=== PATIENT | female | born 1980 | race Caucasian/White ===

== ENCOUNTER 2019-03-09 09:46 | Emergency (ER) | payer OTHER ==
[2019-03-09 09:57] VITALS: BP 122/77; PULSE 108; TEMP 98.4; BMI 47.3
--- NOTE | 2019-03-09 10:49 | PDOC ---
History of Present Illness - General Chief Complaint: Sore Throat Stated Complaint: SORE THROAT Time Seen by Provider: 03/09/19 10:19 - History of Present Illness Initial Comments: 03/09/19 10:45 CHIEF COMPLAINT: sore throat HISTORY OF PRESENT ILLNESS: 38 yo F presents to ED with sore throat x 2 days. Patient reports that her daughter was diagnosed and treated with strep a few days prior to her onset of symptoms so she is concerned that she has strep as well. Denies any change in voice or difficulty swallowing own saliva. Reports subjective fever, denies vomiting or diarrhea. No recent travel or sick contacts. PAST MEDICAL HISTORY: Denies past medical history FAMILY HISTORY: Denies SOCIAL HISTORY: Denies tobacco, alcohol, illicit drug use. SURGICAL HISTORY: Denies ALLERGIES: No known drug allergies REVIEW OF SYSTEMS General/Constitutional: Denies fever or chills. Denies weakness, weight change. HEENT: Sore throat x 2 days. Denies change in vision. Denies ear pain or discharge. Cardiovascular: Denies chest pain or shortness of breath. Respiratory: Denies cough, wheezing, or hemoptysis. Gastrointestinal: Denies nausea, vomiting, diarrhea or constipation. Denies rectal bleeding. Genitourinary: Denies dysuria, frequency, or change in urination. Musculoskeletal: Denies joint or muscle swelling or pain. Denies neck or back pain. Skin and breasts: Denies rash or easy bruising. Neurologic: Denies headache, vertigo, loss of consciousness, or loss of sensation. Psychiatric: Denies depression or anxiety. PHYSICAL EXAM General Appearance: Well-appearing, appropriately dressed. No apparent distress , no intoxication. HEENT: Exudate to L tonsil. Tonsils 1+ b/l. No peritonsillar abscess appreciated. EOMI, PERRLA, normal voice, TMs normal, pharynx normal. No conjunctival pallor. No photophobia, scleral icterus. Neck: Supple. Trachea midline. No tenderness, rigidity, carotid bruit, stridor , lymphadenopathy, or thyromegaly. Respiratory/Chest: Lungs CTAB. No shortness of breath, chest tenderness, respiratory distress, accessory muscle use. No crackles, rales, rhonchi, stridor , wheezing, dullness Cardiovascular: RRR. S1, S2. No JVD, murmur, bradycardia, tachycardia. Vascular Pulses: Dorsalis-Pedis (R): 2+, Dorsalis-Pedis (L): 2+ Gastrointestinal/Abdominal: Normal bowel sounds. Abdomen soft, non-distended. No tenderness or rebound tenderness. No organomegaly, pulsatile mass, guarding , hernia, hepatomegaly, splenomegaly. Lymphatic: No adenopathy, tenderness. Musculoskeletal/Extremities: Normal inspection. FROM of all extremities, normal capillary refill. Pelvis Stable. No CVA tenderness. No tenderness to extremities, pedal edema, swelling, erythema or deformity. Integumentary: Appropriate color, dry, warm. 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 Fully oriented, alert. Appropriate mood/affect. Motor strength 5/5. No appreciable EOM palsy, facial droop or sensory deficit. Past History - Past Medical History Allergies/Adverse Reactions: Allergies Allergy/AdvReac Type Severity Reaction Status Date / Time No Known Allergies Allergy Verified 03/09/19 09:57 Home Medications: Ambulatory Orders NK [No Known Home Medication] 03/09/19 - Psycho Social/Smoking Cessation Hx Smoking History: Never smoked Have you smoked in the past 12 months: No Information on smoking cessation initiated: No Hx Alcohol Use: No Drug/Substance Use Hx: No *Physical Exam - Vital Signs Last Vital Signs Temp Pulse Resp BP Pulse Ox 98.4 F 108 H 20 122/77 98 03/09/19 09:54 03/09/19 09:54 03/09/19 09:54 03/09/19 09:54 03/09/19 09:54 Medical Decision Making - Medical Decision Making 03/09/19 10:48 38 yo F presents to ED with sore throat x 2 days. -strep swab sent Strep positive, patient requests bicillin IM instead of po abc Advised patient follow up with PCP next week. Advised patient of signs and symptoms for return to ED. Patient verbalized understanding and agrees to plan. Discharge - Discharge Information Problems reviewed: Yes Clinical Impression/Diagnosis: Strep sore throat Condition: Stable Disposition: HOME - Admission No - Follow up/Referral - Patient Discharge Instructions Patient Printed Discharge Instructions: DI for Strep Throat - Post Discharge Activity Work/Back to School Note: Back to Work
[2019-03-09] MEDS ORDERED: PENICILLIN G BENZATHINE 1,200,000 UNIT/2 ML PFS IM ONE ×2 (11:22→11:28)
== END 2019-03-09 11:37 | disposition home or self-care (01) ==
LOC: JERFT 09:46
DX: J02.0 Streptococcal pharyngitis (principal); B95.0 Streptococcus, group A, as the cause of diseases classified elsewhere
CPT/HCPCS: 87880; 99281-25

== ENCOUNTER 2019-06-19 11:17 | Emergency (ER) | payer OTHER ==
[2019-06-19 11:29] VITALS: BP 143/61; PULSE 97; TEMP 98.2; BMI 48.4
[2019-06-19] MEDS ORDERED: DIPHTH,PERTUSS(ACELL),TET 0.5 ML DISP.SYRIN IM ONE ×2 (12:11→12:13)
--- NOTE | 2019-06-19 12:17 | PDOC ---
History of Present Illness - General Chief Complaint: Injury Stated Complaint: FOOT INJURY Time Seen by Provider: 06/19/19 11:39 History Source: Patient Exam Limitations: No Limitations - History of Present Illness Is this a multiple visit Asthma Patient?: No Past History - Travel Traveled outside of the country in the last 30 days: No - Past Medical History Allergies/Adverse Reactions: Allergies Allergy/AdvReac Type Severity Reaction Status Date / Time No Known Allergies Allergy Verified 06/19/19 11:26 Home Medications: Ambulatory Orders Ciprofloxacin HCl [Cipro] 500 mg PO BID 7 Days #14 tablet 06/19/19 COPD: No CHF: No DVT: No Dementia: No - Immunization History Immunization Up to Date: Yes - Psycho Social/Smoking Cessation Hx Smoking History: Never smoked Have you smoked in the past 12 months: No Information on smoking cessation initiated: No Hx Alcohol Use: No Drug/Substance Use Hx: No Review of Systems - Review of Systems Constitutional: No: Chills, Fever Musculoskeletal: Yes: Other (left foot discomfort) *Physical Exam - Vital Signs Last Vital Signs Temp Pulse Resp BP Pulse Ox 98.2 F 97 H 16 143/61 97 06/19/19 11:27 06/19/19 11:27 06/19/19 11:27 06/19/19 11:27 06/19/19 11:27 - Physical Exam General Appearance: Yes: Nourished Extremity: positive: Normal Capillary Refill, Normal Inspection, Normal Range of Motion, Other (no visible puncture wound or laceration noted in left foot, distal pulse intact, no erytheam or warmth) 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 Her last tetanus was last was greater than 10 years ago. Patient denies any history of diabetes or any other chronic condition. Patient reports that the nail glazed her foot and no evidence of puncture wound. There is no bleeding is no laceration. There is no warmth swelling. 06/19/19 13:38 Rx gus cipro tetanus updated s/s of infection discussed with patient Discharge - Discharge Information Problems reviewed: Yes Clinical Impression/Diagnosis: Foot pain, left Condition: Stable Disposition: HOME - Admission No - Additional Discharge Information Prescriptions: Ciprofloxacin HCl [Cipro] 500 mg PO BID 7 Days #14 tablet Prescription Drug Monitoring Program (I-STOP) results: I-STOP not reviewed - Follow up/Referral Referrals: Juan Lim [Primary Care Provider] - - Patient Discharge Instructions Additional Instructions: Your exam in the emergency room was normal today. There is no evidence of any puncture wound or laceration. Your tetanus was updated today. And antibiotics were sent to your pharmacy given questionable nail contact. Please watch out for any signs of infection like redness, worsening pain, fever , chills or discharge. If that occurs please return to the emergency room immediately for further evaluation. - Post Discharge Activity
== END 2019-06-19 12:21 | disposition home or self-care (01) ==
LOC: JERFT 11:17
PROC: 3E0234Z Introduction of Serum, Toxoid and Vaccine into Muscle, Percutaneous Approach (ICD-10-PCS; principal; 2019-06-19)
DX: M79.672 Pain in left foot (principal); W26.8XXA Contact with other sharp object(s), not elsewhere classified, initial encounter; Y93.89 Activity, other specified; Y92.89 Other specified places as the place of occurrence of the external cause; Y99.8 Other external cause status; W22.8XXA Striking against or struck by other objects, initial encounter
CPT/HCPCS: 73630-TC-LT; 90471; 90715; 99283-25

== ENCOUNTER 2019-06-28 16:47 | Emergency (ER) | payer OTHER ==
[2019-06-28 17:01] VITALS: BP 144/91; PULSE 99; TEMP 98; BMI 49.0
--- NOTE | 2019-06-28 17:01 | PDOC ---
Rapid Medical Evaluation Time Seen by Provider: 06/28/19 16:58 Medical Evaluation: Allergies Allergy/AdvReac Type Severity Reaction Status Date / Time No Known Allergies Allergy Verified 06/19/19 11:26 06/28/19 16:58 I have performed a brief in-person evaluation of this patient. The patient presents with a chief complaint of: concern for foreign body to throat Pertinent physical exam findings: no foreign body visualized, no resp compromise I have ordered the following: soft tissue neck XR The patient will proceed to the ED for further evaluation Discharge Disposition - Diagnosis Foreign body (FB) in soft tissue - Referrals - Patient Instructions - Post Discharge Activity
--- NOTE | 2019-06-28 17:22 | PDOC ---
History of Present Illness - General Chief Complaint: Foreign Body (FB) Stated Complaint: TOOTHACHE Time Seen by Provider: 06/28/19 16:58 History Source: Patient - History of Present Illness Timing/Duration: other (last night) Severity: moderate Associated Symptoms: denies: fever/chills Past History - Past Medical History Allergies/Adverse Reactions: Allergies Allergy/AdvReac Type Severity Reaction Status Date / Time No Known Allergies Allergy Verified 06/19/19 11:26 Home Medications: Ambulatory Orders Ciprofloxacin HCl [Cipro] 500 mg PO BID 7 Days #14 tablet 06/19/19 COPD: No CHF: No DVT: No Dementia: No - Immunization History Immunization Up to Date: Yes - Psycho Social/Smoking Cessation Hx Smoking History: Never smoked Have you smoked in the past 12 months: No Hx Alcohol Use: No Drug/Substance Use Hx: No Review of Systems - Review of Systems Constitutional: No: Chills, Fever HEENTM: Yes: Mouth Pain. No: Mouth Swelling *Physical Exam - Vital Signs Last Vital Signs Temp Pulse Resp BP Pulse Ox 98 F 99 H 20 144/91 98 06/28/19 16:58 06/28/19 16:58 06/28/19 16:58 06/28/19 16:58 06/28/19 16:58 - Physical Exam General Appearance: Yes: Appropriately Dressed, Mild Distress, Other HEENT: positive: Normal ENT Inspection, TMs Normal, Pharynx Normal, Other ( minimal ttp to site of R retromolar pad but no swelling or fb seen or palpated, dentition unremarkable). negative: Scleral Icterus (R), Scleral Icterus (L) Neck: positive: Supple. negative: Lymphadenopathy (R), Lymphadenopathy (L) Respiratory/Chest: negative: Respiratory Distress Integumentary: positive: Dry, Warm Neurologic: positive: Fully Oriented, Alert, Normal Mood/Affect Medical Decision Making - Medical Decision Making 06/28/19 17:18 38-year-old female, no significant history, here with foreign sensation to mouth. Patient states while brushing her teeth last night felt something "sticking" in R lower retromolar pad but that when she looked inside her mouth did not see any foreign body. Continues to have discomfort to site. Well- appearing and stable with normal oral exam with no gross body visualized or palpated. Will dc to follow-up in urgent care dental clinic today for further eval as discussed with patient Discharge - Discharge Information Problems reviewed: Yes Clinical Impression/Diagnosis: Mouth disorder Condition: Good Disposition: HOME - Follow up/Referral Referrals: Juan Lim [Primary Care Provider] - - Patient Discharge Instructions Additional Instructions: Cause of foreign body sensation is unclear as your exam was normal with no foreign body seen or palpated. As symptoms persist, you will need further evaluation by a dentist. See information below: Urgent Care Dental Address: [address] [place] [id number] Closes 9PM - Post Discharge Activity
== END 2019-06-28 17:19 | disposition home or self-care (01) ==
LOC: JERFT 16:47
DX: K08.89 Other specified disorders of teeth and supporting structures (principal)
CPT/HCPCS: 99281-25

== ENCOUNTER 2019-12-27 23:12 | Emergency (ER) | payer OTHER ==
[2019-12-27 23:17] VITALS: BP 132/86; PULSE 113; TEMP 98.3; BMI 48.7
--- NOTE | 2019-12-27 23:36 | PDOC ---
*Physical Exam - Vital Signs Last Vital Signs Temp Pulse Resp BP Pulse Ox 98.3 F 113 H 19 132/86 98 12/27/19 23:13 12/27/19 23:13 12/27/19 23:13 12/27/19 23:13 12/27/19 23:13 Medical Decision Making - Medical Decision Making 12/27/19 23:35 Patient seen by the advanced practice provider under my supervision. Ancillary testing reviewed as necessary. I agree with plan as outlined by the advanced practice provider. Discharge - Discharge Information Problems reviewed: Yes Clinical Impression/Diagnosis: Sore throat (viral) Condition: Stable Disposition: HOME - Follow up/Referral Referrals: Juan Lim [Primary Care Provider] - - Patient Discharge Instructions Patient Printed Discharge Instructions: DI for Viral Pharyngitis Additional Instructions: RETURN TO THE ER IF YOUR SYMPTOMS WORSEN - Post Discharge Activity Work/Back to School Note: Back to Work
--- NOTE | 2019-12-27 23:37 | PDOC ---
History of Present Illness - General Chief Complaint: Sore Throat Stated Complaint: SORE THROAT Time Seen by Provider: 12/27/19 23:25 History Source: Patient Exam Limitations: No Limitations - History of Present Illness Initial Comments: 12/27/19 23:39 39-year-old female no significant past medical history presenting to the ED with sore throat for 3 days. Patient states that her mother had similar symptoms which have now resolved. Patient is still able to tolerate p.o. fluids and food without difficulty. Patient was COVID positive back in July. Pt otherwise denies: fevers, chills, syncope, lightheadedness, dizziness, headaches, neck pain, chest pain, shortness of breath, palpitations, back pain, abdominal pain, nausea, vomiting, diarrhea, constipation. Past History - Medical History Allergies/Adverse Reactions: Allergies Allergy/AdvReac Type Severity Reaction Status Date / Time No Known Allergies Allergy Verified 06/19/19 11:26 Home Medications: Ambulatory Orders Ciprofloxacin HCl [Cipro] 500 mg PO BID 7 Days #14 tablet 06/19/19 Loperamide HCl [Loperamide] 2 mg PO PRN PRN #14 capsule 07/30/19 COPD: No CHF: No DVT: No Dementia: No - Surgical History GI Surgery: Yes (Hernia Repair) - Reproductive History Is Patient Now?: No - Immunization History Immunization Up to Date: Yes - Psycho-Social/Smoking History Smoking History: Never smoked Have you smoked in the past 12 months: No - Substance Abuse Hx (Audit-C & DAST Scrn) How often the patient has a drink containing alcohol: Never Score: In Men: 4 or > Positive; In Women: 3 or > Positive: 0 Screen Result (Pos requires Nsg. Audit-10AR): Negative In the last yr the pt used illegal drug/Rx for NonMed reason: No Score: Yes response is considered Positive: 0 Screen Result (Positive result requires Nsg. DAST-10): Negative *Physical Exam - Vital Signs Last Vital Signs Temp Pulse Resp BP Pulse Ox 98.3 F 113 H 19 132/86 98 12/27/19 23:13 12/27/19 23:13 12/27/19 23:13 12/27/19 23:13 12/27/19 23:13 - Physical Exam 12/27/19 23:40 Gen: AAOx 3, no acute distress, comfortable, no signs of respiratory distress HENT: atraumatic, normocephalic with no laceration or contusion. Nasal mucosa without erythema. Oropharynx without erythema or exudates. Mucous membranes moist. EYES: PERRL, EOM intact, conjunctiva pink NECK: supple; trachea midline; no JVD, no lymphadenopathy, or thyromegaly CV: RRR no murmurs, gallops, or rubs. CHEST: CTA b/l no wheezing, rales or rhonchi ABD: +BS/ND. no TTP; soft, no rebound, no guarding EXTREMITY: no cyanosis or erythema. 2+ dorsalis pedis, posterior tibial, and radial pulse. No pedal edema; no calf swelling or tenderness SKIN: no rash, warm and dry, no diaphoresis HEME: no purpura or ecchymosis NEURO: normal speech, CN II-XII intact, sensation intact, normal gait, no cerebellar deficits MS: 5/5 strength in all extremities, FROM intact in all extremities. Medical Decision Making - Medical Decision Making 12/27/19 23:40 39-year-old female with sore throat Vital signs significant for mild tachycardia 113 Benign physical exam Most likely viral pharyngitis Tachycardia has now resolved in the ED patient's heart rate in the mid 90s Pt appears well and is safe and stable for discharge with strict return precautions including signs and symptoms requring immediate return to the ED Supportive care instructions explained and given to pt. Reasons to return emergently to ER explained and given. Importance of follow up with PMD and other specialists as indicated stressed to pt. Pt verbalized understanding of instructions. Pt to follow up with PMD in 2 days. Discharge - Discharge Information Problems reviewed: Yes Clinical Impression/Diagnosis: Sore throat (viral) Condition: Stable Disposition: HOME - Follow up/Referral Referrals: Juan Lim [Primary Care Provider] - - Patient Discharge Instructions Patient Printed Discharge Instructions: DI for Viral Pharyngitis Additional Instructions: RETURN TO THE ER IF YOUR SYMPTOMS WORSEN - Post Discharge Activity Work/Back to School Note: Back to Work
== END 2019-12-28 00:10 | disposition home or self-care (01) ==
LOC: JER 23:12
DX: R07.0 Pain in throat (principal)
CPT/HCPCS: 99283-25

== ENCOUNTER 2020-02-20 08:44 | Emergency (ER) | payer OTHER ==
[2020-02-20 08:52] VITALS: BP 131/83; PULSE 82; TEMP 97.9; BMI 50.2
--- OUTSIDE RECORDS SUMMARY | 2020-02-20 09:02 | XMS ---
:1980 Demographics Address [address] [place] [address] Mobile Phone Preferred Language en Marital Status Not or Congregational Affiliation [place] Race [facility] Ethnic Group Not or Author Organization [facility] Support Name Relationship Address Phone [employer] Unavailable [address] [place] [address] JUSTINA MEDRANO MOTHER [address] [place] [address] JUSTINA MEDRANO Mother [address] [place] [address] Care Team Providers Name Role Phone OYEKOLA LAST GREASER, MOBOLAJI Unavailable OYEKOLA LAST GREASER, MOBOLAJI Unavailable OYEKOLA LAST GREASER, MOBOLAJI Unavailable OYEKOLA LAST GREASER, MOBOLAJI Unavailable AdamJonelle Shawna Unavailable AGYEPONG LAST GREASER Unavailable AGYEPONG LAST GREASER Unavailable MONY LAST GREASER Unavailable MONY LAST GREASER Unavailable MONY LAST GREASER Unavailable LOU DDS Unavailable Re-disclosure Warning The records that you are about to access may contain information from federally- assisted alcohol or drug abuse programs. If such information is present, then the following federally mandated warning applies: This information has been disclosed to you from records protected by federal confidentiality rules (42 CFR part 2). The federal rules prohibit you from making any further disclosure of this information unless further disclosure is expressly permitted by the written consent of the person to whom it pertains or as otherwise permitted by 42 CFR part 2. A general authorization for the release of medical or other information is NOT sufficient for this purpose. The Federal rules restrict any use of the information to criminally investigate or prosecute any alcohol or drug abuse patient.The records that you are about to access may contain highly sensitive health information, the redisclosure of which is protected by Article 27-F of the [facility] Public Health law. If you continue you may haveaccess to information: Regarding HIV / AIDS; Provided by facilities licensed or operated by the [facility] Office of Mental Health; or Provided by the [facility] Office for People With Developmental Disabilities. If such information is present, then the following [facility] mandated warning applies: This information has been disclosed to you from confidential records which are protected by state law. State law prohibits you from making any further disclosure of this information without the specific written consent of the person to whom it pertains, or as otherwise permitted by law. Any unauthorized further disclosure in violation of state law may result in a fine or longterm sentence or both. A general authorization for the release of medical or other information is NOT sufficient authorization for further disclosure. Allergies and Adverse Reactions Type Description Substance Reaction Status Data Source(s ) Allergy to No Known Allergies No known [facility] ([facility] substance allergies [facility] ) Allergy to No Known Allergies No known [facility] ([facility] substance allergies [facility] ) Allergy to No Known Allergies No known [facility] ([facility] substance allergies [facility] ) Allergy to No Known Allergies No known [facility] [facility] ([facility] substance allergies [facility] ) Allergy to No Known Allergies No known [facility] [facility] ([facility] substance allergies [facility] ) Allergy to No Known Allergies No known [facility] ([facility] substance allergies [facility] ) Encounters Encounter Providers Location Date Indications Data Source(s) Outpatient< Attender: Simon 12/03/ ThrombocytosisPrediabete sObesity TOMMY td [facility] 2020 Morbid ([place] ID="[facility] 02:30: Neighborhood erTypeDescr LAST GREASER Center 00 PM Health iptionID0"> EDT - Center) OFFICE 12/03/ VISIT</td>< 2019 td>ALVARO 04:40: [facility] 37 PM LAST GREASER</td><td EDT >[facility]</td> <td> 020</td><td ><content ID="encount erDiagnosis ID0-0">Pred iabetes</co ntent>, <content ID="encount erDiagnosis ID0-1">Thro mbocytosis< /content>, <content ID="encount erDiagnosis ID0-2">Obes ity Morbid</con tent></td> Thrombocytosis Prediabetes Obesity Morbid Outpatient<td Attender: Simon 11/28/2019 [place] ID="encounterTypeDescriptionID1">*OUTREACH*</td><td>[facility] 12:31:00 PM ([facility] LAST GREASER</td><td>[facility] E DT - Neighborhood Center</td><td>11/28/2019</td><td></td> [facility] Center 020 Health 11:59:00 PM Center) EDT Outpatient<td ID="encounterTypeDescriptionID2">COMPLETE Attender : Simon 11/22/2019 P [place] PHYSICAL EXAM</td><td>[facility]</td><td>[facility] 10:00:00 AM r ([facility] EDT - e [facility]</td><td>11/22/2019</td><td><content LAST GREASER Center 11/07 v Health ID="encounterDiagnosisID2-0">Routine Pre-employment 12:20:45 PM e Center) Screening Examination</content>, <content EDT n ID="encounterDiagnosisID2-1">Obesity Morbid</content>, t <content ID="encounterDiagnosisID2-2">Questionnaires Phq-9 i Quick Depression Assessment Panel</content>, <content v ID="encounterDiagnosisID2-3">Preventive Med Standardized e Depression Screening: Positive For Symptoms</content></td> M e d S t a n d a r d i z e d D e p r e s s i o n S c r e e n i n g : P o s i t i v e F o r S y m p t o m s Q u e s t i o n n a i r e s P h q - 9 Q u i c k D e p r e s s i o n A s s e s s m e n t P a n e l R o u t i n e P r e - e m p l o y m e n t S c r e e n i n g E x a m i n a t i o n P r e v e n t i v e M e d S t a n d a r d i z e d D e p r e s s i o n S c r e e n i n g : P o s i t i v e F o r S y m p t o m s Q u e s t i o n n a i r e s P h q - 9 Q u i c k D e p r e s s i o n A s s e s s m e n t P a n e l R o u t i n e P r e - e m p l o y m e n t S c r e e n i n g E x a m i n a t i o n P r e v e n t i v e M e d S t a n d a r d i z e d D e p r e s s i o n S c r e e n i n g : P o s i t i v e F o r S y m p t o m s Q u e s t i o n n a i r e s P h q - 9 Q u i c k D e p r e s s i o n A s s e s s m e n t P a n e l R o u t i n e P r e - e m p l o y m e n t S c r e e n i n g E x a m i n a t i o n P r e v e n t i v e M e d S t a n d a r d i z e d D e p r e s s i o n S c r e e n i n g : P o s i t i v e F o r S y m p t o m s Q u e s t i o n n a i r e s P h q - 9 Q u i c k D e p r e s s i o n A s s e s s m e n t P a n e l R o u t i n e P r e - e m p l o y m e n t S c r e e n i n g E x a m i n a t i o n O b e s i t y M o r b i d O b e s i t y M o r b i d O b e s i t y M o r b i d O b e s i t y M o r b i d Preventive Med Standardized Depression S creening: Positive For Symptoms Questionnaires Phq-9 Quick Depression As sessment Panel Routine Pre-employment Screening Examina tion Preventive Med Standardized Depression S creening: Positive For Symptoms Questionnaires Phq-9 Quick Depression As sessment Panel Routine Pre-employment Screening Examina tion Preventive Med Standardized Depression S creening: Positive For Symptoms Questionnaires Phq-9 Quick Depression As sessment Panel Routine Pre-employment Screening Examina tion Preventive Med Standardized Depression S creening: Positive For Symptoms Questionnaires Phq-9 Quick Depression As sessment Panel Routine Pre-employment Screening Examina tion Obesity Morbid Obesity Morbid Obesity Morbid Obesity Morbid Outpatient<td Attender: Simon 06/29/2019 ThrombocytosisAnemiaThrombocytosisAnemiaThrombocytosisAnemiaThrombocytosisAnemia ThrombocytosisAnemiaObesity [place] ID="encounterTypeDescriptionID3">[place]</td><td>[facility] 03:15:00 PM MorbidObesity MorbidObesity MorbidObesity MorbidObesit y Morbid ([facility]</td><td>[facility]</td><td>06/29/2019</td><td><content LAST GREASER Center 06/11 Health ID="encounterDiagnosisID3-0">Obesity Morbid</content>, 03:34:18 PM Center) <content ID="encounterDiagnosisID3-1">Anemia</content>, EST <content ID="encounterDiagnosisID3-2">Thrombocytosis</content></td> Thrombocytosis Anemia Thrombocytosis Anemia Thrombocytosis Anemia Thrombocytosis Anemia Thrombocytosis Anemia Obesity Morbid Obesity Morbid Obesity Morbid Obesity Morbid Obesity Morbid Outpatient<td Attender: Simon 06/21/2019 Routine TOMMY ID="encounterTypeDescriptionID4">OFFICE [facility] 0 9:00:00 AM Pre-employment (Bryan Cerrato VISIT</td><td>[facility] LAST GREASER</td><td>[facility]</td><td>06/21/2019</td><td><content 11:5 0:06 AM Pre-employment Center) ID="encounterDiagnosisID4-0">Obesity EST Screening Morbid</content>, <content Examinati onRoutine ID="encounterDiagnosisID4-1">Routine Pre-employment Pre-employment Screening Screening Examination</content></td> Examinati onRoutine Pre-employment Screening ExaminationRoutine Pre-employment Screening ExaminationRoutine Pre-employment Screening ExaminationObesity MorbidObesity MorbidObesity MorbidObesity MorbidObesity MorbidObesity Morbid Routine Pre-employment Screening Examina tion Routine Pre-employment Screening Examina tion Routine Pre-employment Screening Examina tion Routine Pre-employment Screening Examina tion Routine Pre-employment Screening Examina tion Routine Pre-employment Screening Examina tion Obesity Morbid Obesity Morbid Obesity Morbid Obesity Morbid Obesity Morbid Obesity Morbid Outpatient<td Attender: Simon 06/16/2019 TOMMY ID="encounterTypeDescriptionID5">*No [facility] 01:36:00 P M (Bryan Cerrato Show*</td><td>[facility] LAST GREASER</td><td>[facility] Center 06/16/2019 Health Center</td><td>06/16/2019</td><td></td> 11:59:0 0 PM Center) EST Outpatient<td Attender: Simon 06/09/2019 R TOMMY ID="encounterTypeDescriptionID6">[facility] 11:30: 00 AM o (Bryan Cerrato </td><td>[facility] EST - [facility]</td><td>[facility] LAST GREASER Center 06/09/2019 t Health Center</td><td>06/09/2019</td><td><minnie 12:26: 48 PM i Center) nt ID="encounterDiagnosisID6-0">Routine EST n Pre-employment Screening e Examination</content>, <content P ID="encounterDiagnosisID6-1">Obesity r [place]</content></td> e - e m p l o y m e n t S c r e e n i n g E x a m i n a t i o n R o u t i n e P r e - e m p l o y m e n t S c r e e n i n g E x a m i n a t i o n R o u t i n e P r e - e m p l o y m e n t S c r e e n i n g E x a m i n a t i o n R o u t i n e P r e - e m p l o y m e n t S c r e e n i n g E x a m i n a t i o n R o u t i n e P r e - e m p l o y m e n t S c r e e n i n g E x a m i n a t i o n R o u t i n e P r e - e m p l o y m e n t S c r e e n i n g E x a m i n a t i o n R o u t i n e P r e - e m p l o y m e n t S c r e e n i n g E x a m i n a t i o n O b e s i t y M o r b i d O b e s i t y M o r b i d O b e s i t y M o r b i d O b e s i t y M o r b i d O b e s i t y M o r b i d O b e s i t y M o r b i d O b e s i t y M o r b i d Routine Pre-employment Screening Examina tion Routine Pre-employment Screening Examina tion Routine Pre-employment Screening Examina tion Routine Pre-employment Screening Examina tion Routine Pre-employment Screening Examina tion Routine Pre-employment Screening Examina tion Routine Pre-employment Screening Examina tion Obesity Morbid Obesity Morbid Obesity Morbid Obesity Morbid Obesity Morbid Obesity Morbid Obesity Morbid Outpatient<td Attender: Simon 01/30/2019 TOMMY ID="encounterTypeDescriptionID8">DENTAL [facility] 11:00:0 0 AM ([place] RE-CALL VISIT</td><td>[facility]</td><td>[facility] 01/30/2019 Health Center</td><td>01/30/2019</td><td></td> 11:59:0 0 PM Center) EDT Outpatient<td Attender: Simon 01/30/2019 TOMMY ID="encounterTypeDescriptionID7[facility] ([place] ISIT</td><td>[facility] EDT [facility]</td><td>[facility] Health Health 11:59:00 PM Center) Center</td><td>01/30/2019</td><td></td> EDT Medications Medication Brand Start Product Dose Route Administrative Pharmacy St atus Indications Reaction Description Data Name Date Form Instructions Instructions Source(s) Tricor 48MG Tricor 12/03/ UNIT 1 active Tricor TOMMY Oral Tablet 48MG 2019 ([place] Oral 12:00: Saqib Tablet 00 AM [facility] EDT Health Center) Vitamin D Vitami 12/03/ UNIT active Vitamin D TOMMY (Ergocalcif n D 2019 (Ergocalcife ([place]) 1.25 (Ergoc 12:00: rol) Verno n MG(31053 alcife 00 AM [place] [place]) Oral rol) EDT od Health Capsule 1.25 Center) MG(500 00 [place]) Oral Capsul e ferrous Ferrou 11/07/ UNIT 1 complet Ferrous GR EENWAY sulfate 325 s 2019 ed Sulfate ([place] t MG Oral Sulfat 12:00: Saqib Tablet e 325 00 AM [place] Ferrous (65 EDT od Health Sulfate 325 Fe)MG Center) (65 Fe)MG Oral Oral Tablet Tablet Vitamin D Vitami 11/07/ UNIT suspend Vitamin D TOMMY (Ergocalcif n D 2019 ed (Ergocalcife ([place]) (Ergoc 12:00: rol) Saqib [id number] alcife 00 AM [place] Oral rol) EDT od Health Capsule [id number] Center) NIT Oral Capsul e Ascorbic Ascorb 11/07/ UNIT 1 complet Ascorbic TOMMY Acid 500 MG ic 2019 ed Acid ([place] Oral Tablet Acid 12:00: Saqib Ascorbic 500MG 00 AM Neighbor[facility] o Acid 500MG Oral EDT od Health Oral Tablet Tablet Center ) Tricor 48MG Tricor 08/19/ UNIT 1 suspend Tricor TOMMY Oral Tablet 48MG 2018 ed ([place] Oral 12:00: Saqib Tablet 00 AM [facility] EDT od Health Center) Insurance Providers Payer name Policy type Policy ID Covered Covered Policy Plan / Coverage alliance party ID alliance party's [employer] on type relationship to triana [facility] MEDICA[facility] COMM [id number] SP [id number] [facility] Individual 0 Self 0 Employees ([place]) Policy - [facility] Individual 0 Self 0 Employees ([place]) Policy - [facility] Individual 0 Self 0 Employees ([place]) Policy - [facility] Individual 0 Self 0 Employees ([place]) Policy - [facility] Individual 0 Self 0 Employees ([place]) Policy - [facility] Individual 0 Self 0 Employees ([place]) Policy - [facility] Individual 0 Self 0 Employees ([place]) Policy - [facility] MEDICAID COMM [id number] SP 0 [id number] PLAN [facility] Individual 0 Self 0 Employees ([place]) Policy - [facility] Individual 0 Self 0 Employees ([place]) Policy - [facility] Individual 0 Self 0 Employees ([place]) Policy - [facility] Individual 0 Self 0 Employees ([place]) Policy - [facility] Individual 0 Self 0 Employees ([place]) Policy - [facility] Individual 0 Self 0 Employees ([place]) Policy - [facility] [id number] S [id number] MKD Superior Vision [id number] S [id number] MKD [facility] [id number] S [id number] Options MKD MVP Medicaid [id number] S [id number] Managed Care Value Options MKD [id number] S [id number] (Behaviorial Managemanagent) Dental [facility] [id number] S [id number] Community MKD Plan Dental Medicaid [id number] S [id number] Regular Clinic Visit [facility] [id number] S [id number] MKD Community Plan Medicaid of [place] Individual 0 Self 0 [place] Policy Medicaid of [place] Individual 0 Self 0 [place] Policy Problems, Conditions, and Diagnoses Code Display Name Description Problem Type Effective Data Sour ce(s) Dates [id number] Thrombocytosis Thrombocytosis Problem 12/04/2019 [facility] AY ([place] (disorder) 12:00:00 AM [facility]) [id number] Leukocytosis Leukocytosis Problem 12/04/2019 [place] ( [place] (disorder) 12:00:00 AM [facility]) [id number] Anemia (disorder) Anemia Problem 12/04/2019 [facility] Y ([place] 12:00:00 AM [facility]) [id number] Thrombocytosis Thrombocytosis Problem 11/28/2019 [facility] ([place] (disorder) 12:00:00 AM [facility]) [id number] Leukocytosis Leukocytosis Problem 11/28/2019 [place] ( [place] (disorder) 12:00:00 AM [facility]) [id number] Anemia (disorder) Anemia Problem 11/28/2019 [facility] Y ([place] 12:00:00 AM [facility]) [id number] Thrombocytosis Thrombocytosis Problem 11/28/2019 [facility] [facility] ([place] (disorder) 12:00:00 AM [facility]) [id number] Leukocytosis Leukocytosis Problem 11/28/2019 TOMMY ( [place] (disorder) 12:00:00 AM [facility]) [id number] Anemia (disorder) Anemia Problem 11/28/2019 [place] Y ([place] 12:00:00 AM [facility]) [id number] Thrombocytosis Thrombocytosis Problem 11/22/2019 [place] [facility] ([place] (disorder) 12:00:00 AM [facility]) [id number] Leukocytosis Leukocytosis Problem 11/22/2019 TOMMY ( [place] (disorder) 12:00:00 AM [facility]) [id number] Anemia (disorder) Anemia Problem 11/22/2019 [facility] Y ([place] 12:00:00 AM [facility]) [id number] Thrombocytosis Thrombocytosis Problem 06/29/2019 [place] [facility] ([place] (disorder) 12:00:00 AM [facility]) [id number] Leukocytosis Leukocytosis Problem 06/29/2019 TOMMY ( [place] (disorder) 12:00:00 AM [facility]) [id number] Anemia (disorder) Anemia Problem 06/29/2019 [place] Y ([place] 12:00:00 AM [facility]) [id number] Thrombocytosis Thrombocytosis Problem 06/21/2019 [place] [facility] ([place] (disorder) 12:00:00 AM [facility]) [id number] Leukocytosis Leukocytosis Problem 06/21/2019 TOMMY ( [place] (disorder) 12:00:00 AM [facility]) [id number] Anemia (disorder) Anemia Problem 06/21/2019 [place] Y ([place] 12:00:00 AM [facility]) [id number] Thrombocytosis Thrombocytosis Problem 06/09/2019 [place] [facility] ([place] (disorder) 12:00:00 AM [facility]) [id number] Leukocytosis Leukocytosis Problem 06/09/2019 TOMMY ( [place] (disorder) 12:00:00 AM [facility]) [id number] Anemia (disorder) Anemia Problem 06/09/2019 [facility] Y ([place] 12:00:00 AM [facility]) Surgeries/Procedures Procedure Description Date Indications Data Source(s) HEMOGLOBIN A1C HEMOGLOBIN A1C 11/26/2019 [place] ([place] 12:00:00 AM [facility]) LIPID PANEL LIPID PANEL 11/26/2019 TOMMY ([facility] 12:00:00 AM [facility]) TSH-THYROID TSH-THYROID 11/26/2019 [place] ([facility] STIMULATING STIMULATING 12:00:00 AM [facility]) VITAMIN D 25 - VITAMIN D 25 - 11/26/2019 [place] ([facility] HYDROXY HYDROXY 12:00:00 AM [facility]) QUANTIFERON QUANTIFERON 11/26/2019 [place] ([facility] TUBERCULOSIS TEST, TUBERCULOSIS TEST, 12:00:00 AM [facility] CELL MEDIATED CELL MEDIATED [facility] ) IMMUNITY AG RES IMMUNITY AG RES Past medical history Past medical history 11/22/2019 [place] ([facility] G2 L1 M0 A1 G2 L1 M0 A1 12:00:00 AM [facility]) Date of last Date of last 11/22/2019 [place] ([facility] menstruation menstruation 12:00:00 AM [facility] 11/08/2019 11/08/2019 [facility]) History of surgery History of surgery 11/22/2019 [place] ([facility] hernia repair ~bunion hernia repair 12:00:00 AM [facility] removal bilateral ~bunion removal [facility]) removal bilateral removal Bmi documented BMI OUTSIDE NORMAL 06/29/2019 [facility] ([facility] outside normal RANGE - NO F/U PLAN 12:00:00 AM [facility] parameters, [facility] ) follow-up plan documented, no reason given IRON BINDING IRON BINDING 06/29/2019 [place] ([facility] 12:00:00 AM [facility]) IRON IRON 06/29/2019 [place] ([facility] 12:00:00 AM [facility]) FOLIC ACID/B12 FOLIC ACID/B12 06/29/2019 [place] (M ount 12:00:00 AM [facility]) FERRITIN FERRITIN 06/29/2019 [place] ([facility] 12:00:00 AM [facility]) Date of last Date of last 06/29/2019 [place] ([facility] menstruation menstruation 12:00:00 AM [facility] 06/28/2019 06/28/2019 [facility]) No prior serious No prior serious 06/21/2019 ITALIA Y ([facility] illness illness 12:00:00 AM [facility]) Forms complete Forms complete 06/21/2019 [place] (M ount 12:00:00 AM [facility]) Bmi is documented BMI > NORMAL 06/21/2019 [place] ([facility] above normal DOCUMENTED W F/U 12:00:00 AM [facility] parameters and a PLAN [facility] er) follow-up plan is documented STOOL OCCULT BLOOD STOOL OCCULT BLOOD 06/21/2019 [facility] ([place] 12:00:00 AM [facility]) [id number] 06/21/2019 [facility] ([place] 12:00:00 AM [facility]) Drug Screen -Optical Drug Screen -Optical 06/09/2019 [place] ([facility] observation - Any observation - Any 12:00:00 AM [place] Number Class Number Class [facility]) ORAL HYGIENE ORAL HYGIENE 01/30/2019 [place] ([facility] INSTRUCTION INSTRUCTION 12:00:00 AM [facility]) ORAL HYGIENE ORAL HYGIENE 01/30/2019 [place] ([facility] INSTRUCTION INSTRUCTION 12:00:00 AM [facility]) Periodic Oral Exam - Periodic Oral Exam - 01/30/2019 [place] ([facility] MKD WRAP MKD WRAP 12:00:00 AM [facility]) PERIODIC ORAL EXAM PERIODIC ORAL EXAM 01/30/2019 [facility] ([place] 12:00:00 AM [facility]) INTRAORAL PERIAPICAL INTRAORAL PERIAPICAL 01/30/2019 [place] ([facility] FIRST FLIM FIRST FLIM 12:00:00 AM [facility]) BITEWINGS-FOUR FILMS BITEWINGS-FOUR FILMS 01/30/2019 [place] ([place] 12:00:00 AM [facility]) INTRAORAL EACH INTRAORAL EACH 01/30/2019 [place] ([place] ADDITIONAL ADDITIONAL 12:00:00 AM [facility]) ADULT PROPHYLAXIS ADULT PROPHYLAXIS 01/30/2019 [facility] ([place] 12:00:00 AM [facility]) ADULT PROPHYLAXIS ADULT PROPHYLAXIS 01/30/2019 [facility] ([place] 12:00:00 AM [facility]) Results ID Date Data Source [id number] 11/28/2019 12:32:11 PM EDT [place] Y ([place] [id number] Name Value Range Interpretation Description Data Source(s ) Supporting Code Document(s ) No Results No Results No Results TOMMY ([facility] Recorded For Saqib Specified [facility]) ID Date Data Source [id number] 11/22/2019 01:42:00 PM EDT TOMMY ([facility]) Name Value Range Interpretation Description Data Source(s ) Supporting Code Document(s ) HIV 1+2 Non HIV Screen [place] Ab+HIV1 p24 Reactive 4th ([place] Ag [Presence] Generation Neighborhood in Serum or [facility]) Plasma by Immunoassay ID Date Data Source [id number] 11/22/2019 01:42:00 PM EDT TOMMY ([facility]) Name Value Range Interpretation Description Data Source(s ) Supporting Code Document(s ) Thyrotropin 2.100 TSH [place] ([facility] [Units/volume] uIU/mL Saqib in Serum or [facility] Plasma [facility]) Detection limit <= 0.05 mIU/L ID Date Data Source [id number] 11/22/2019 01:42:00 PM EDT [place] ([facility]) Name Value Range Interpretation Description Data Source(s ) Supporting Code Document(s ) Hemoglobin 6.1 % Above high normal Hemoglobin A1c [facility] A[facility] ([facility] A1c/Hemoglobi Saqib n.total in [facility]) Note: Prediabetes: 5.7 - 6.4 Diabetes: >6.4 Glycemic control for adults with diabetes: <7.0 ID Date Data Source [id number] 11/22/2019 01:42:00 PM EDT TOMMY ([facility]) Name Value Range Interpretation Description Data Source(s ) Supporting Code Document(s ) QuantiFERON 0.02 QuantiFERON [place] TB1 Ag Value IU/mL TB1 Ag Value ([facility]) Service See Note QuantiFERON TOMMY comment Criteria ([facility]) Note: The QuantiFERON-TB Gold Plus resul t is determined by subtractingthe Nil value from either TB antigen (Ag) tube. The mi togen tubeserves as a control for the test. QuantiFERON-TB Gold Negative QuantiFERON-TB Gold TOMMY ([facility] Plus Plus [facility]) QuantiFERON Incubation Incubation QuantiFERON GREE NWAY ([facility] performed. Incubation [facility]) QuantiFERON TB2 Ag 0.01 IU/mL QuantiFERON TB2 Ag G REENWAY ([facility] Value Value [facility]) QuantiFERON Mitogen 6.04 IU/mL QuantiFERON Mitogen TOMMY ([facility]) Gamma interferon 0.01 IU/mL QuantiFERON Nil Value TOMMY ([facility] background [place] [Units/volume] in [facility]) Blood by Immunoassay ID Date Data Source [id number] 11/22/2019 01:42:00 PM EDT RED[place] ([facility] nt [facility]) Name Value Range Interpretation Description Data Source(s ) Supporting Code Document(s ) Neisseria Negative Neisseria [place] gonorrhoeae gonorrhoeae, ([place] rRNA [Presence] [place] [facility] in [facility]) specimen by Probe and target amplification method Chlamydia Negative Chlamydia [place] trachomatis trachomatis, ([place] rRNA [Presence] [place] [facility] in [facility]) specimen by Probe and target amplification method ID Date Data Source [id number] 11/22/2019 01:42:00 PM EDT [place] ([facility]) Name Value Range Interpretation Description Data Source(s ) Supporting Code Document(s ) Triglyceride 259 Above high Triglycerides TOMMY [Mass/volume] mg/dL normal ([place] in Serum or [facility] Plasma [place]) Cholesterol 163 Cholesterol, [place] [Mass/volume] mg/dL Total ([place] in Serum or [facility]) Laboratory N/A Comment: [place] comment [Text] ([place] in Report [facility]) Cholesterol in 38 Below low normal HDL Cholesterol GR EENWAY HDL mg/dL ([place] [Mass/volume] [facility] in Serum or [place]) Plasma Cholesterol in 73 LDL Cholesterol [place] LDL mg/dL Calc ([place] [Mass/volume] [facility] in Serum or [place]) Plasma by calculation Cholesterol in 1.9 LDL/HDL Ratio [place] LDL/Cholestero ratio ([place] l in HDL [Mass Neighborhood Ratio] in [place]) Serum or Plasma Note: LDL/HDL Ratio Men Women 1/2 Avg.Risk 1.0 1.5 Avg.Risk 3.6 3.2 2X Avg.Risk 6.2 5.0 3X Avg.Risk 8.0 6.1 Cholesterol in VLDL 52 mg/dL Above high VLDL Cholesterol GR EENWAY ([facility] [Mass/volume] in normal [facility] Serum or Plasma by [facility] er) calculation ID Date Data Source [id number] 11/22/2019 01:42:00 PM EDT TOMMY [facility] Name Value Range Interpretation Description Data Sup porting Code Source(s) Document(s ) Glucose 87 Glucose TOMMY [Mass/volume] in mg/dL ([place] Serum or [facility]) Calcium 9.2 Calcium TOMMY [Mass/volume] in mg/dL ([facility]) Protein 6.9 Protein, TOMMY [Mass/volume] in g/dL Total ([facility]) Urea nitrogen 7 mg/dL BUN TOMMY [Mass/volume] in ([facility]) Albumin 4.1 Albumin TOMMY [Mass/volume] in g/dL ([facility]) Bilirubin.total 0.4 Bilirubin, TOMMY [Mass/volume] in mg/dL Total ([place] Serum or [facility]) Alkaline 79 IU/L Alkaline TOMMY phosphatase Phosphatase ([place] [Enzymatic Neighborhood activity/volume] [facility] in Serum or Plasma [place]) Aspartate 24 IU/L AST (SGOT) TOMMY aminotransferase ([place] [Enzymatic Neighborhood activity/volume] [facility] in Serum or Plasma [place]) Sodium 138 Sodium TOMMY [Moles/volume] in mmol/L ([facility] Serum or [facility]) Chloride 101 Chloride TOMMY [Moles/volume] in mmol/L ([facility] Serum or [facility]) Potassium 4.2 Potassium TOMMY [Moles/volume] in mmol/L ([facility]) Creatinine 0.48 Below low normal Creatinine TOMMY [Mass/volume] in mg/dL ([facility]) Alanine 12 IU/L ALT (SGPT) TOMMY aminotransferase ([place] [Enzymatic Neighborhood activity/volume] Health in Serum or Plasma [place]) Urea 15 BUN/Creatinin TOMMY nitrogen/Creatinin e Ratio ([facility] on e [Mass Ratio] in [facility] Serum or [facility]) Carbon dioxide, 23 Carbon [place] total mmol/L Dioxide, ([place] [Moles/volume] in Total [facility] or [facility]) Albumin/Globulin 1.5 A/G Ratio TOMMY [Mass Ratio] in ([place] Serum or Plasma [facility]) Globulin 2.8 Globulin, TOMMY [Mass/volume] in g/dL Total ([place] Serum by [facility]) eGFR If NonAfricn 126 eGFR If TOMMY Am mL/min/ NonAfricn Am ([address]) eGFR If Africn Am 145 eGFR If TOMMY mL/min/ Africn Am ([address]) ID Date Data Source [id number] 11/22/2019 01:42:00 PM EDT TOMMY ([facility]) Name Value Range Interpretation Description Data Source(s ) Supporting Code Document(s ) Calcidiol 17.4 Below low normal Vitamin D, [place] ([place] [Mass/volume ng/mL 25-Hydroxy Saqib ] in Serum [facility] or [facility]) Note: Vitamin D deficiency has been defi segun by the [place] ofMedicine and an Endocrine Society practice guideline as alevel of serum 25-OH vitamin D less than 20 ng/mL (1,2).The Endocrine Society went o n to further define vitamin Dinsufficiency as a level between 21 and 29 ng/mL (2).1. I OM ([place] of Medicine). 2010. Dietary reference intakes for calcium and D. [place]: The National Academies Press.2. Evan MF, Kat NC, Mitali Gonzales CHADWICK, et al. Evaluation, treatment, and prevention of vitamin D deficiency : an Endocrine Society clinical practice guideline. JCEM. 2010; 96(7):1911-30 . ID Date Data Source [id number] 11/22/2019 01:42:00 PM EDT [place] ([place] [facility]) Name Value Range Interpretation Description Data Sup porting Code Source(s) Document(s ) Benzodiazepine Negative Benzodiazepines TOMMY s [Presence] ng/mL ([place] in Urine [facility]) Benzoylecgonin Negative Cocaine (Metab.) TOMMY e [Presence] ng/mL ([place] in Urine [facility]) Opiates Negative Opiates TOMMY [Presence] in ng/mL ([facility]) Note: Opiate test includes Codeine and M orphine only. Phencyclidine Negative ng/mL Phencyclidine [place] Y ([place] [Presence] in Urine [facility]) Barbiturates [Presence] Negative ng/mL Barbiturate TOMMY ([place] in Urine by Screen [facility]) Propoxyphene [Presence] Negative ng/mL Propoxyphen e, Urine TOMMY ([place] in Urine [facility]) Cannabinoids [Presence] Negative ng/mL Cannabinoid TOMMY ([place] in Urine by Screen [facility]) Ethanol [Mass/volume] Negative % Ethanol, Urine GR EENWAY ([place] in Urine [facility]) Amphetamines [Presence] Negative ng/mL Amphetamine s, Urine TOMMY ([place] in Urine by Screen [facility]) Note: Amphetamine test includes Amphetam ine and Methamphetamine. Methadone [Presence] Negative ng/mL Methadone Scre en, TOMMY ([place] in Urine by Screen Urine [facility]) ID Date Data Source [id number] 11/22/2019 12:27:13 PM EDT GREEN[place] Y ([place] [id number] [facility]) Name Value Range Interpretation Description Data Source(s ) Supporting Code Document(s ) No Results No Results No Results TOMMY ([facility] Recorded For [facility]) ID Date Data Source [id number] 09/21/2019 12:00:00 AM EDT [facility] Name Value Range Interpretation Code Description Data Jessica rce(s) Supporting Document(s ) 2018-nCoV [facility] RNA XXX [place]+probe- Imp This lab [facility] and reported by [employer] ID Date Data Source [id number] 08/26/2019 12:00:00 AM EDT [facility] Name Value Range Interpretation Code Description Data Jessica rce(s) Supporting Document(s ) 2019-nCoV [facility] RNA XXX [place]+probe- Imp This lab was ordered by [facility] RACHNA MARS and reported by [employer] ID Date Data Source [id number] 08/24/2019 12:00:00 AM EDT [facility] Name Value Range Interpretation Code Description Data Jessica rce(s) Supporting Document(s ) 2019-nCoV [facility] RNA XXX [place]+probe- Imp This lab was ordered by [facility] RACHNA MARS and reported by [employer] Procedure Social History Code Duration Value Status Description Data Source(s ) Smoking 11/22/2019 Never smoked completed Never smoked TOMMY ( [place] 12:27:01 PM EDT tobacco tobacco (finding) Ve [facility] ([facility]) [facility]) Smoking 06/21/2019 Never smoked completed Never smoked TOMMY ( [place] 12:33:16 PM EST tobacco tobacco (finding) Ve [facility] ([facility]) [facility]) Smoking 06/09/2019 smoking status completed TOMMY ( [facility] 12:17:39 PM EST [facility]) Vital Signs ID Date Data Source UNK Name Value Range Interpretation Code Description Data Source(s) PhenX - pain, 0 0 TOMMY ([facility] abdominal - type [facility]) protocol Pt presents today for labs results and e mployment PE form Body surface area Derived from 2.66 m2 2.66 m2 TOMMY ([facility]) Pt presents today for labs results and e mployment PE form Body mass index (BMI) 48.3 kg/m2 48.3 kg/m2 GRE ENWAY ([place] [Ratio] [facility] Pt presents today for labs results and e mployment PE form Body weight 346 [lb_av] 346 [lb_av] TOMMY ([facility]) Pt presents today for labs results and e mployment PE form Body height 71 [in_us] 71 [in_us] TOMMY ([facility]) Pt presents today for labs results and e mployment PE form Body temperature 97.9 [degF] 97.9 [degF] [facility] ([facility]) Pt presents today for labs results and e mployment PE form Heart rate 94 /min 94 /min TOMMY ([facility]) Pt presents today for labs results and e mployment PE form Diastolic blood pressure 80 mm[Hg] 80 mm[Hg] [place] ([facility]) Pt presents today for labs results and e mployment PE form Systolic blood pressure 128 mm[Hg] 128 mm[Hg] G [facility] ([facility]) Pt presents today for labs results and e mployment PE form PhenX - pain, abdominal - type and 0 0 [place] ([facility]) Patient is here for a complete physical. Body surface area Derived from 2.66 m2 2.66 m2 [place] ([facility]) Patient is here for a complete physical. Body mass index (BMI) 48.1 kg/m2 48.1 kg/m2 [facility] ([place] [[facility]] [facility]) Patient is here for a complete physical. Body weight 345.0375 [lb_av] 345.0375 [lb_av] Kim [facility] ([facility]) Patient is here for a complete physical. Body height 71 [in_us] 71 [in_us] [place] ([facility] nt [facility]) Patient is here for a complete physical. Body temperature 98.2 [degF] 98.2 [degF] [facility] A[facility] ([facility]) Patient is here for a complete physical. Heart rate rhythm 1 1 VICTORIAWA Y ([facility]) Patient is here for a complete physical. Heart rate 80 /min 80 /min [place] ([facility]) Patient is here for a complete physical. Diastolic blood pressure 90 mm[Hg] 90 mm[Hg] [place] ([facility]) Patient is here for a complete physical. Systolic blood pressure 122 mm[Hg] 122 mm[Hg] Kim [facility] ([facility]) Patient is here for a complete physical. PhenX - pain, abdominal - type and 0 0 [place] ([facility]) Follow up labs Body surface area Derived from 2.65 m2 2.65 m2 [place] ([facility]) Follow up labs Body mass index (BMI) 47.7 kg/m2 47.7 kg/m2 [facility] ([place] [facility] Follow up labs Body weight 342 [lb_av] 342 [lb_av] TOMMY ([facility]) Follow up labs Body height 71 [in_us] 71 [in_us] TOMMY ([facility]) Follow up labs Body temperature 98.1 [degF] 98.1 [degF] [facility] AY ([facility]) Follow up labs Heart rate 97 /min 97 /min TOMMY ([facility]) Follow up labs Diastolic blood pressure 80 mm[Hg] 80 mm[Hg] TOMMY ([facility]) Follow up labs Systolic blood pressure 116 mm[Hg] 116 mm[Hg] G REENWAY ([facility]) Follow up labs PhenX - pain, abdominal - type and 0 0 TOMMY ([facility]) Pt needs follow up lab for work Body surface area Derived from 2.65 m2 2.65 m2 [place] ([facility]) Pt needs follow up lab for work Body mass index (BMI) 47.7 kg/m2 47.7 kg/m2 GRE EN[place]AY ([place] [Ratio] [facility]) Pt needs follow up lab for work Body weight 342 [lb_av] 342 [lb_av] TOMMY ([facility]) Pt needs follow up lab for work Body height 71 [in_us] 71 [in_us] TOMMY ([facility]) Pt needs follow up lab for work Body temperature 98.7 [degF] 98.7 [degF] [place]W AY ([facility]) Pt needs follow up lab for work Heart rate 95 /min 95 /min [place] ([facility]) Pt needs follow up lab for work Diastolic blood pressure 80 mm[Hg] 80 mm[Hg] TOMMY ([facility]) Pt needs follow up lab for work Systolic blood pressure 130 mm[Hg] 130 mm[Hg] G REENWAY ([facility]) Pt needs follow up lab for work PhenX - pain, abdominal - type and 0 0 TOMMY ([facility]) Pt. presenting for pre-employment form c ompletion. Body surface area Derived from 2.63 m2 2.63 m2 TOMMY ([facility]) Pt. presenting for pre-employment form c ompletion. Body mass index (BMI) 46.9 kg/m2 46.9 kg/m2 GRE EN[place]AY ([place] [Ratio] [facility]) Pt. presenting for pre-employment form c ompletion. Body weight 336 [lb_av] 336 [lb_av] TOMMY ( ount [facility]) Pt. presenting for pre-employment form c ompletion. Body height 71 [in_us] 71 [in_us] TOMMY ([facility]) Pt. presenting for pre-employment form c ompletion. Body temperature 97.9 [degF] 97.9 [degF] [facility] ([facility]) Pt. presenting for pre-employment form c ompletion. Heart rate 93 /min 93 /min TOMMY ([facility]) Pt. presenting for pre-employment form c ompletion. Diastolic blood pressure 83 mm[Hg] 83 mm[Hg] TOMMY ([facility]) Pt. presenting for pre-employment form c ompletion. Systolic blood pressure 131 mm[Hg] 131 mm[Hg] [facility] Pt. presenting for pre-employment form c ompletion. Patient Treatment Plan of Care Planned Activity Planned Date Details Description Data Source (s) Vitamin D 12/04/2019 12:00:00 TOMMY ([place] (Ergocalciferol) 1.25 AM [facility] MG([address]167 [facility]) Oral Center) Capsule Tricor 48MG Oral 12/04/2019 12:00:00 KEN NWAY ([place] Tablet AM [facility]) Vitamin D 11/07/2018 12:00:00 TOMMY ([place] (Ergocalciferol) AM [facility] [id number] [facility]) Capsule Ascorbic Acid 500 MG 11/07/2018 12:00:00 [place] ([place] Oral Tablet [facility]) ferrous sulfate 325 11/07/2018 12:00:00 [facility] ([place] MG Oral Tablet [facility]) Tricor 48MG Oral 08/19/2017 12:00:00 KEN AVALOS (Bryan Cerrato Tablet AM [facility])
--- NOTE | 2020-02-20 09:11 | PDOC ---
History of Present Illness - General Chief Complaint: Pain Stated Complaint: LEG PAIN Time Seen by Provider: 02/20/20 08:55 History Source: Patient Exam Limitations: No Limitations - History of Present Illness Initial Comments: 02/20/20 09:06 Patient is a 39-year-old female with a history of prediabetes who presents to the ED with complaint of right lower extremity pain, primarily her thigh, for the last 4 days. The patient states that the pain is mostly when walking or moving. She denies any injury. She denies any falls. She has been taking Aleve which has not been helping. She states a similar pain started 1 month ago but resolved after taking Aleve. The patient denies any control, recent long travel, or cancer history. She does state a month ago she drove to [place] but it took under 5 hours to get there. The patient denies any shortness of breath or chest pain. She denies palpitations. She states the pain is deep inside and not reproducible. She denies any allergies to medications. Past History - Medical History Allergies/Adverse Reactions: Allergies Allergy/AdvReac Type Severity Reaction Status Date / Time No Known Allergies Allergy Verified 02/20/20 08:47 Home Medications: Ambulatory Orders Ciprofloxacin HCl [Cipro] 500 mg PO BID 7 Days #14 tablet 06/19/19 Loperamide HCl [Loperamide] 2 mg PO PRN PRN #14 capsule 07/30/19 Cyclobenzaprine HCl [Flexeril 10 mg] 10 mg PO BID PRN #20 tablet 02/20/20 COPD: No CHF: No DVT: No Dementia: No Diabetes: (Pre diabetes) - Surgical History GI Surgery: Yes (Hernia Repair) - Reproductive History Is Patient Now?: No - Immunization History Immunization Up to Date: Yes - Psycho-Social/Smoking History Smoking History: Never smoked Have you smoked in the past 12 months: No - Substance Abuse Hx (Audit-C & DAST Scrn) How often the patient has a drink containing alcohol: Never Score: In Men: 4 or > Positive; In Women: 3 or > Positive: 0 Screen Result (Pos requires Nsg. Audit-10AR): Negative In the last yr the pt used illegal drug/Rx for NonMed reason: No Score: Yes response is considered Positive: 0 Screen Result (Positive result requires Nsg. DAST-10): Negative Review of Systems - Review of Systems Comments:: 02/20/20 09:07 - Review of Systems Able to Perform ROS?: Yes Constitutional: No: Fever, Chills, Loss of Appetite, Night Sweats, Weakness HEENTM: No: Eye Pain, Vision changes, Ear Pain, Throat Pain, Throat Swelling, Mouth Pain, Difficulty Swallowing Respiratory: No: Cough, Shortness of Breath, Wheezing, Sputum Production Cardiac (ROS): No: Chest Pain, Chest Tightness, Palpitations, Irregular Heart Beat, Edema ABD/GI: No: Nausea, Vomiting, Abdominal Pain, Diarrhea : No Dysuria, No Hematuria, No Frequency, No Urgency Musculoskeletal: No: Muscle Pain, Back Pain, Joint Pain, Muscle Weakness, Neck Pain; positive: Right lower extremity pain Integumentary: No: Lesions, Rash Neurological: No: Headache, Numbness, Tingling, Weakness, Speech Difficulties *Physical Exam - Vital Signs Last Vital Signs Temp Pulse Resp BP Pulse Ox 97.9 F 82 18 131/83 100 02/20/20 08:47 02/20/20 08:47 02/20/20 08:47 02/20/20 08:47 02/20/20 08:47 - Physical Exam 02/20/20 09:08 - Physical Exam General Appearance: Nourished, Appropriately Dressed, No Distress HEENT: EOMI, Normal Voice, Hearing Grossly Normal Neck: Supple, No Lymphadenopathy (R), No Lymphadenopathy (L), No Rigidity, No Decreased range of motion Respiratory/Chest: Lungs Clear, Normal Breath Sounds. No Respiratory Distress, No Accessory Muscle Use; good air entry bilaterally. No wheezes/rales/rhonchi. Cardiovascular: Regular Rhythm, Regular Rate, S1, S2 Gastrointestinal/Abdominal: Normal Bowel Sounds, Soft. Non-tender, No Guarding, No Rebound, No Rigidity Musculoskeletal: Normal Inspection. No Decreased Range of Motion; no reproducible right lower extremity pain. No discrepancy in leg size of the calf or thigh. EHL intact. Negative Benz sign. DP and PT pulses 2+. Sensation intact distally. Extremity: Normal Capillary Refill, Normal Inspection Integumentary: Normal Color, Dry. No Rash Neurologic: e tailer II-XII NML intact, Fully Oriented, Alert, Normal Mood/Affect, Normal Response ED Treatment Course - RADIOLOGY Radiology Studies Ordered: Category Date Time Status DUPLEX VASCUL US-1 LEG [US] Stat Ultrasound 02/20/20 09:05 Ordered Medical Decision Making - Medical Decision Making 02/20/20 09:09 Assessment: Patient is a 39-year-old female with right thigh pain with walking. Plan: -Duplex ordered to rule out a DVT of the right lower extremity -Will reassess 02/20/20 10:28 The patient has been made aware that her ultrasound is negative for DVT. Her symptoms can be secondary to muscle strain. We will send a prescription for Flexeril to the pharmacy for the patient. She understands and agrees with this treatment plan and she has been made aware that she should follow-up with her primary doctor within the next few days for repeat evaluation. She may be required to have a repeat ultrasound if her symptoms do not resolve. The patient is stable for discharge. Discharge - Discharge Information Problems reviewed: Yes Clinical Impression/Diagnosis: Right leg pain Condition: Stable Disposition: HOME - Additional Discharge Information Prescriptions: Cyclobenzaprine HCl [Flexeril 10 mg] 10 mg PO BID PRN #20 tablet PRN Reason: Muscle Spasms - Follow up/Referral Referrals: [facility] [place] [Provider Group] - Patient Discharge Instructions Patient Printed Discharge Instructions: DI for Leg Pain Additional Instructions: Get plenty of rest and drink plenty of fluids. Continue to take Aleve as needed for pain but be sure to take with food. A prescription for Flexeril, a muscle relaxer, has been sent to the pharmacy for you. Take this primarily before bed to help with pain and muscle spasm. Be aware that the Flexeril can cause drowsiness so do not drive or operate machinery while taking it. Follow-up with your primary doctor within 1 to 2 days for repeat evaluation. If you do not have a primary doctor we have referred you to 1. You may be required to have a another ultrasound within 1 week if you continue to have the pain. - Post Discharge Activity Work/Back to School Note: Back to Work
== END 2020-02-20 10:40 | disposition home or self-care (01) ==
LOC: JERFT 08:44
DX: M79.604 Pain in right leg (principal)
CPT/HCPCS: 93971-TC; 99284-25

== ENCOUNTER 2022-11-14 19:44 | Emergency (ER) | payer OTHER ==
[2022-11-14 19:54] VITALS: RESP 20; TEMP 98.9; BMI 51.6
[2022-11-14 20:34] VITALS: BP 158/95; PULSE 98
[2022-11-14] MEDS ORDERED: ALBUTEROL SO4 2.5/IPRATROPIUM 0.5 INH SOL 3 ML VIAL.NEB. NEB ONE ×2 (20:41→20:45)
[2022-11-14] MEDS ORDERED: SODIUM CHLORIDE FOR INHALATION 3 ML VIAL.NEB IH ONE (20:42)
== END 2022-11-14 21:19 | disposition home or self-care (01) ==
LOC: JERFT 19:44
PROC: 3E0F7GC Introduction of Other Therapeutic Substance into Respiratory Tract, Via Natural or Artificial Opening (ICD-10-PCS; principal; 2022-11-14)
DX: J06.9 Acute upper respiratory infection, unspecified (principal); R05.9 Cough, unspecified; R09.81 Nasal congestion; Z20.822 Contact with and (suspected) exposure to COVID-19
CPT/HCPCS: 0241U-QW; 87651; 99283-25

== ENCOUNTER 2022-12-26 19:30 | Emergency (ER) | payer OTHER ==
[2022-12-26 19:36] VITALS: BP 141/93; PULSE 93; RESP 20; TEMP 97.6; BMI 51.6
[2022-12-26 21:36] LABS: THROAT:GRP A STREP NOT DETECTED (NOTDETECTED)
== END 2022-12-26 21:31 | disposition home or self-care (01) ==
LOC: JERFT 19:30
DX: R09.81 Nasal congestion (principal); R06.7 Sneezing; R07.0 Pain in throat; R05.9 Cough, unspecified; U07.1 COVID-19; J06.9 Acute upper respiratory infection, unspecified
CPT/HCPCS: 0241U-QW; 87651; 99283-25